=== PATIENT | female | born 1995 | race Hispanic/Latino ===

== ENCOUNTER 2019-03-21 22:29 | Emergency (ER) | payer OTHER, SELFPAY ==
[~2019-03-21 22:29] MED LIST: Iopamidol-370 76% 500 ML 1 ML ONE
[2019-03-21 23:28] LABS: #Eosinphils 0.9 thou/uL (0.0-0.7); #Lymphocytes 2.9 thou/uL (1.20-3.40); #Monocytes 0.7 thou/uL (0.11-0.59); #Neutrophils 7.4 thou/uL (1.40-6.50); %Basophils 0.1 % (0.0-1.0); %Eosinophils 7.5 % (0.0-10.0); %Lymphocytes 24.3 % (21.0-51.0); %Monocytes 5.8 % (0.0-10.0); %Neutrophils 62.3 % (42.0-75.0); Hemoglobin 15.1 g/dL (12.0-16.0); Mean Corpuscular HGB CONC 34.4 g/dL (32.0-36.0); Mean Corpuscular Hemoglobin 31.3 pg (27.0-31.0); Mean Corpuscular Volume 91.1 fL (78.0-98.0); Mean Platelet Volume 8.4 fL (7.4-10.4); Platelet Count 241 thou/uL (130-400); RBC Distribution Width 11.5 % (11.5-14.5); White Blood Cell (WBC) Count 11.8 thou/uL (4.8-10.8)
[2019-03-21 23:34] LABS: BHCG - Serum Negative (NEGATIVE); Pregs Control Background? CLEAR/WHITE (CLR/WHITE); Pregs Control Bar Appear? YES (CONTROL BAR)
[2019-03-21 23:54] LABS: ALT (SGPT) 201 U/L (8-55); AST (SGOT) 81 U/L (5-34); Albumin 4.1 g/dL (3.5-5.0); Alkaline Phosphatase 130 U/L (40-110); Anion Gap 10 mmol/L (10-20); BUN (Urea Nitrogen) 11 mg/dL (7.0-18.7); Bilirubin, Total 0.3 mg/dL (0.2-1.2); Calc. Creatinine Clearance 0 mL/min (70-130); Calcium 9.4 mg/dL (7.8-10.44); Carbon Dioxide 28 mmol/L (22-29); Chloride 103 mmol/L (98-107); Estimated GFR-MDRD Greater than 90; Globulin 3.7 g/dL (2.4-3.5); Glucose 129 mg/dL (70-105); Lipase 17 U/L (8-78); Potassium 3.7 mmol/L (3.5-5.1); Protein, Total 7.8 g/dL (6.0-8.3); Sodium 137 mmol/L (136-145)
--- NOTE | 2019-03-22 08:01 | CT ---
PRELIMINARY REPORT/[facility]/AFTER HOURS PROCEDURE CT ABDOMEN AND PELVIS WITH CONTRAST: COMPARISON: None. FINDINGS: No significant abnormality in the lung bases. Absent gallbladder. No biliary obstruction. Trace fluid in the gallbladder fossa. No hydronephrosis or symptomatic urinary calculus. The liver is enlarged measuring 20 cm in length. The solid organs and vasculature are otherwise normal. No bowel obstruction, free air or diverticulitis. No evidence of abscess. Normal appendix identified in the central pelvis. The reproductive organs and urinary bladder are normal. Edema in the fat around the umbilicus. IMPRESSION: Trace fluid in the gallbladder fossa is within normal limits for a recent cholecystectomy. No evidenc e of abscess. Mild edema around the umbilicus is also likely benign related to recent laparoscopic dobbs rgery. Correlate clinically for cellulitis. ELECTRONICALLY SIGNED BY: Sudhakar Bush MD Mar 22, 2019 1:15:52 AM [employer] This report is intended for review by the ordering physician only, in accordance of law. If you recei ve this report in error, please call [facility] at [phone]. FINAL REPORT CT ABDOMEN AND PELVIS WITH IV CONTRAST: HISTORY: Abdominal pain status post recent cholecystectomy on 03/16/2019. FINDINGS/IMPRESSION: I agree with the preliminary report given by Dr. Sudhakar Bush of [facility]. CODE QA POS: [facility]
== END 2019-03-22 01:25 | disposition home or self-care (01) ==
LOC: ERS 22:29
DX: T81.41XA Infection following a procedure, superficial incisional surgical site, initial encounter (principal); L02.216 Cutaneous abscess of umbilicus; G89.18 Other acute postprocedural pain
CPT/HCPCS: 36415; 74177; 80053; 83605; 83690; 84703; 85025; Q9967